=== PATIENT | male | born 1990 | race Two or more races ===

== ENCOUNTER 2018-12-13 18:39 | Emergency (ER) | payer MEDICAID ==
[~2018-12-13] VITALS: Ht 188 cm; Wt 95.3 kg
[~2018-12-13 18:39] MED LIST: SEROQUEL50 MG ORAL
--- NOTE | 2018-12-13 18:44 | NUR ---
ED Nurse Note: Patient brought in by ambulance with complaints of pain related to shingles.
[2018-12-13 19:14] VITALS: BP 130/90
[2018-12-13] MEDS ORDERED: HYDROcodone/Acetamin 10/325 tab ORAL ONE (19:30)
--- NOTE | 2018-12-13 19:52 | NUR ---
ED Nurse Note: Patient resting comfortably, tolerated pain medication well. will continue to monitor.
--- NOTE | 2018-12-13 20:13 | Emergency Room Report ---
History of Present Illness General Chief Complaint: Pain Source: Patient Present Illness HPI 28-year-old male presents to the emergency department complaining of 10 out of 10 severity pain, burning sensation and shingles rash down the left lower extremity x1 week. Patient reports he has had history of shingles in the past and presented with similar presentation. Patient describes some itching as well. Patient denies fevers, chills, recent travel or ill contacts with similar symptoms. Patient reports he did have the actual chickenpox when he was younger. Patient reports history of immune compromise and is currently taking antiretrovirals. Patient states CD4 count was 400 something. Patient reports viral load undetectable. Pt. denies swollen tender lymph nodes. Denies lesions/rashes elsewhere on the face, genitalia or body. Denies new medications or body washes or creams. Denies swelling of the lips, tongue , throat or airway. Denies wheezing, or shortness of breath. Denies oral lesions, or sloughing of the skin. He denies ROWELL, neck pain/stiffness or AMS. 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 + Review of Systems All Other Systems: negative except mentioned in HPI Physical Exam Vital Signs Date Time Temp Pulse Resp B/P (MAP) Pulse Ox O2 Delivery O2 Flow Rate FiO2 12/13/18 18:34 97.5 80 16 130/90 (103) 100 Room Air Sp02 EP Interpretation: reviewed, normal General Appearance: alert, GCS 15, non-toxic, moderate distress Head: normocephalic, atraumatic Eyes: bilateral eye normal inspection, bilateral eye PERRL, bilateral eye other - no rash near or on the eyes ENT: hearing grossly normal, normal voice, other - NO rash on the nose Neck: full range of motion Respiratory: chest non-tender, lungs clear, normal breath sounds, no wheezing, speaking full sentences Cardiovascular #1: regular rate, rhythm, normal capillary refill Genitourinary: other - no genital involvement of the rash Musculoskeletal: gait/station normal, normal range of motion, non-tender Neurologic: alert, oriented x3, responsive, motor strength/tone normal, sensory intact, speech normal, grossly normal Psychiatric: judgement/insight normal Skin: rash - Patches of grouped vesicles along the of the posterior left lower extremity that does not cross the midline. No blisters or sloughing of the skin no significant surrounding erythema or areas of warmth. Severe tenderness to superficial palpation.- no suspicion for eye involvement. Lymphatic: no adenopathy Medical Decision Making PA Attestation Dr. Miranda is my supervising Physician whom patient management has been discussed with. Diagnostic Impression: Primary Impression: Shingles Qualified Codes: B02.8 - Zoster with other complications ER Course 28-year-old male presents to the emergency department complaining of 10 out of 10 severity pain, burning sensation and shingles rash down the left lower extremity x1 week. Patient reports he has had history of shingles in the past and presented with similar presentation. Patient describes some itching as well. Patient denies fevers, chills, recent travel or ill contacts with similar symptoms. Patient reports he did have the actual chickenpox when he was younger. Patient reports history of immune compromise and is currently taking antiretrovirals. Patient states CD4 count was 400 something. Patient reports viral load undetectable. Pt. denies swollen tender lymph nodes. Denies lesions/rashes elsewhere on the face, genitalia or body. Denies new medications or body washes or creams. Denies swelling of the lips, tongue , throat or airway. Denies wheezing, or shortness of breath. Denies oral lesions, or sloughing of the skin. He denies ROWELL, neck pain/stiffness or AMS. Ddx considered but are not limited to cellulitis, Shingles, chicken pox, burn, Vital signs: are WNL, pt. is afebrile H&PE are most consistent with Shingles outbreak: Patches of grouped vesicles along the of the posterior left lower extremity that does not cross the midline. No blisters or sloughing of the skin no significant surrounding erythema or areas of warmth. Severe tenderness to superficial palpation.- no suspicion for eye involvement. ORDERS: none required at this time, the diagnosis is clinical ED INTERVENTIONS: -[place] 10mg PO -I do not identify an emergent condition at this time. With current presentation , pt. is stable for close outpatient follow up and conservative treatment. D/ w pt. to return promptly to ED with worsening or new symptoms.- Pt. verbalizes' understanding and agreement with proposed treatment plan. DISCHARGE: At this time pt. is stable for d/c to home. Will provide printed patient care instructions, and any necessary prescriptions. Care plan and follow up instructions have been discussed with the patient prior to discharge. 800mg Acyclovir 5x daily for 7 days. Last Vital Signs Date Time Temp Pulse Resp B/P (MAP) Pulse Ox O2 Delivery O2 Flow Rate FiO2 12/13/18 19:14 97.5 79 16 130/90 100 Room Air Disposition: HOME, SELF-CARE Condition: Stable Scripts Acyclovir* (ZOVIRAX*) 800 Mg Tablet 800 MG ORAL FIVE TIMES A DAY for 7 Days, #35 TAB Prov: Gabbi Remy 12/13/18 Hydrocodone Bit/Acetaminophen 7.5-325* (NORCO 7.5-325*) 1 Each Tablet 1 TAB ORAL Q6H PRN for For Pain, #15 TAB 0 Refills Prov: Gabbi Remy 12/13/18 Referrals: [facility] Patient Instructions: Shingles, [id number] Additional Instructions: Take medications as directed. Follow up with a Primary Care Provider in 3-5 days, even if your symptoms have resolved. --Please review list of primary care clinics, if you do not already have a primary care provider Return sooner to ED if new symptoms occur, or current symptoms become worse. Do not drink alcohol, drive, or operate heavy machinery while taking [place] as this may cause drowsiness. - Please note that this Emergency Department Report was dictated using [employer] technology software, occasionally this can lead to erroneous entry secondary to interpretation by the dictation equipment. Gabbi Remy Dec 13, 2018 20:13
[2018-12-13] MEDS ORDERED: ACYCLOVIR800 MG ORAL (20:18)
[2018-12-13] MEDS ORDERED: NORCO 7.5-3251 EACH ORAL (20:18)
--- NOTE | 2018-12-13 20:21 | NUR ---
ED Nurse Note: PT cleared to be d/c per ermd, pt discharge and aftercare instruction provided w/ prescription, pt education done via discussion and handout, pt advised to follow up with pcp or return to ed if changes in condition, vss, ambulatory w/ steady gait, left w/ all belongings. pt verbalized understanding.
[2018-12-13 20:22] VITALS: BP 130/90
== END 2018-12-13 20:25 | disposition home or self-care (01) ==
LOC: EDBD 18:39 → EMR 19:44
DX: B02.9 Zoster without complications (principal); B20 Human immunodeficiency virus [HIV] disease
CPT/HCPCS: 99282